=== PATIENT | female | born 1995 | race Caucasian/White ===

== ENCOUNTER → 2018-11-09 | Day surgery (SDC) | payer OTHER ==
[~2018-11-09] MED LIST: DILTIAZEM HCL30 MG PO; ENSKYCE PO; EPINEPHRINE HCL 1:1000 1ML 1 MG/ML AMP ONE; FENTANYL CITRATE/PF 100MCG/2 ML INJ ONE; GLYCOPYRROLATE INJ 1MG/ 5 ML SYR ONE; KETOROLAC TROMETHAMINE 30 MG/ML VIAL ONE; LIDOCAINE 2%/ EPINEPHRINE 20ML MDV ONE; LIDOCAINE HCL 2% LOCAL INJ 5 ML SDV VIAL INJ ONE; MEPERIDINE HCL INJ 25 MG/ML VIAL ONE; MIDAZOLAM HCL 2 MG/2 ML VIAL ONE; NEOSTIGMINE 5 MG/5ML SYR ONE; PROMETHAZINE HCL (IM) 25 MG/ML VIAL ONE; PROPOFOL IV EMULSION 10 MG/ML 20 ML VIAL ONE; ROCURONIUM BROMIDE 10 MG/ML 5ML VIAL ONE; SEVOFLURANE INHAL SOLN 250 ML PEN BTL ONE
--- NOTE | 2018-11-09 04:22 | Pre Op History & Physical ---
DATE OF PROCEDURE: November 09, 2018. CHIEF COMPLAINT: Nasal obstruction and chronic sinusitis. HISTORY OF PRESENT ILLNESS: This 23-year-old female has history of nasal obstruction, worse at night with temporal and occipital pain. She also has nosebleed. The patient has normal sense of smell with no history of injury to the nose. She has postnasal drip. The patient's condition has been treated with multiple antibiotics including Z-Raúl and Levaquin with no improvement of the condition. After 8 weeks of antibiotics, a CT scan of paranasal sinuses showed the patient has chronic sinusitis with maxillary sinus involvement and deviated nasal septum to the right side. REVIEW OF SYSTEMS: System review showed no recent cardiovascular, respiratory, or GI problem. PAST MEDICAL HISTORY: The patient has no significant medical problem. PAST SURGICAL HISTORY: She has previous cholecystectomy. ALLERGIES: SHE IS ALLERGIC TO PENICILLIN. MEDICATIONS: She is on diltiazem and control. SOCIAL HISTORY: She is a nonsmoker and nondrinker. FAMILY HISTORY: Noncontributory. PHYSICAL EXAMINATION: VITAL SIGNS: On examination, the patient's vital signs were within normal limits. She was seen with her mother. HEENT: Ear exam showed normal tympanic membranes bilaterally. Nasal exam showed deviated nasal septum to the right side about 40%. Oropharynx and oral cavity show 2+ tonsils bilaterally with Mallampati level 2. NECK: No lymph node or thyroid palpable. CHEST: Showed good air entry bilaterally. CARDIOVASCULAR: Showed S1, S2. No murmur noted. ASSESSMENT AND PLAN: Ms. Wang has chronic sinusitis and nasal obstruction, which has been resistant to conservative therapy. The suggested treatment is limited endoscopic sinus surgery, septoplasty, and other necessary procedure. Complication of procedure includes, but not limited to bleeding, infection, CSF leak, blindness, double vision, dry eyes, septal perforation, septal hematoma, persistent nasal obstruction, persistent nasal crusting, nasal deformity, recurrence of the sinus problem. Alternatives will be continued observation, continued antibiotic therapy, topical nasal steroid therapy, systemic steroid therapy, and decongestant. The alternative will be continued observation. The patient and her mother have elected to undergo the surgical procedure. MD DONAL Wetzel/MODL /[id number] cc: Emelia Bass MD
--- OUTSIDE RECORDS SUMMARY | 2018-11-09 06:35 | XMS REPORT | Clinical Summary ---
Author Author [facility] Address Unknown Phone Unavailable Care Team Providers Care Quality Compliance Consultant Name Role Phone Fantasma Quiroz MD PCP Unavailable Allergies Comments Active Allergy Reactions Severity Noted Date No Known Drug Allergies 07/27/2015 Medications End Date Status Medication Sig Dispensed Refills Start Date Active diltiazem (CardIZEM) 30 Take 30 mg by 0 MG tablet mouth 4 (four) times a day. Active Problems Problem Noted Date Tachycardia 07/27/2015 Allergic rhinitis 06/23/2011 Acne 11/14/2010 Social History Date Tobacco Use Types Packs/Day Years Used Never Smoker Alcohol Use Drinks/Week oz/Week Comments No Sex Assigned at Date Recorded Not on file Industry Job Start Date Occupation Not on file Not on file Not on file Travel End Travel History Travel Start No recent travel history available. Last Filed Vital Signs Not on file Plan of Treatment Health Maintenance Due Date Last Done Comments CHLAMYDIA SCREENING 2013 INFLUENZA VACCINE 11/04/2018 Results Not on fileafter 11/08/2017 Insurance Type Payer Benefit Subscriber ID Effective Phone Address Plan / Dates Group HMO/PPO [facility] xxxxxxxxx [id number] THCARE resent CHOICE/CHO ICE + (Home) [place] [address] Advance Directives Patient has advance care planning documents on file. For more information, frank joyce contact: Abelardo Barton [address] [place] [address]
[2018-11-09 10:45] VITALS: BP 125/87
--- NOTE | 2018-11-09 15:15 | Operative Report ---
DATE OF PROCEDURE: 11/09/2018 SURGEON: Amaury Ward MD CHIEF COMPLAINT: Chronic sinusitis, nasal obstruction. POSTOPERATIVE DIAGNOSIS: Chronic sinusitis, nasal obstruction. OPERATIVE PROCEDURES: Septoplasty and bilateral anterior ethmoidectomy and maxillary sinus antrostomy bilaterally with resection of tissue of maxillary antrum, bilateral maxillary sinus antrostomy. ANESTHESIA: Dr. Garnett. INDICATIONS: This 23 years old female has postnasal drip and nasal obstruction bilaterally, worse on the right side. Her condition has been treated with topical nasal steroid, decongestant, and antibiotics with no improvement. On examination, she was noted to have a deviated nasal septum to the right side anteriorly about 30% with a spur on the left about 20%. A CT scan of paranasal sinuses shows some ethmoid sinus involvement and some blockage of the maxillary sinus. It was decided that a septoplasty, limited endoscopic sinus surgery and other necessary procedure will be beneficial for her. DESCRIPTION OF PROCEDURE: The patient was taken to the operating room, put under general anesthesia, endotracheally intubated. The nose was injected with 1% Xylocaine with 1:100,000 epinephrine. An epinephrine-soaked pledget was inserted into nose and subsequently removed. The ethmoid sinus was examined on the left side. The appearance of the middle meatal area and the ethmoids sinus area were worse than what the CAT scan showed. Using microdebrider, the anterior ethmoid sinuses were dissected in a systematic fashion. Increased and inflamed tissue was noted in the anterior ethmoid sinus area. Care was taken during dissection to ascertain that the orbit was not entered. Using a curved probe, the natural ostia of the maxillary sinus was entered. This was enlarged anteriorly and posteriorly using a backbiter and Thru-Cut forceps respectively. The right paranasal sinuses were approached. Using the middle turbinate, the right side was medialized. Again, increased lymphoid and increased inflammation was noted in the anterior ethmoid sinus region. The bulla ethmoidalis was entered. Using the microshaver, the anterior ethmoid sinus was dissected in the systematic fashion. Care was taken during dissection to ascertain that the orbit was not entered. Again, the amount of inflammation is worse than what the CT scan shown. Using a curved probe, the natural ostium in the maxillary sinus was entered. This was enlarged anteriorly and posteriorly using a backbiter and Thru-Cut forceps respectively. Septoplasty was performed. A hemitransfixion incision was done on the left side. Mucoperichondrial flap was elevated on the left. Bony cartilaginous junction was encountered and this was . Perpendicular plate of the ethmoid was transected. This was removed along with the vomer. The septal spur cartilaginous portion removed using a Virgil elevator and bony spur using a 4 mm chisel. The quadrangular cartilage after being freed from posterior and inferior constraint was able to swing back into the midline. The hemitransfixion incision was closed using 4-0 chromic suture in interrupted fashion. The septal whipstitch was tied using 4-0 plain gut suture to reapproximate the mucoperichondrial flap and prevent septal hematoma formation. A piece of NasoPore was inserted in the sinus cavities on either side. This was done to prevent synechiae formation and for hemostasis. The patient tolerated the above procedure well with estimated blood loss about 30 mL. She was given 20 mg of Decadron intraoperatively. The patient was able to be transferred to recovery room in stable condition. MD MIGUEL Wetzel/MARY /[id number]
== END | disposition home or self-care (01) ==
LOC: OR 06:33
PROVIDERS: ATTEND Otolaryngology Otolaryngology/Facial Plastic Surgery
DX: J32.0 Chronic maxillary sinusitis (principal); J32.2 Chronic ethmoidal sinusitis; J34.89 Other specified disorders of nose and nasal sinuses; J34.2 Deviated nasal septum; I47.1 Supraventricular tachycardia; Z88.0 Allergy status to penicillin; Z01.810 Encounter for preprocedural cardiovascular examination; Z01.812 Encounter for preprocedural laboratory examination
CPT/HCPCS: 30520; 31254; 31256; 36415; 81025 ×2; 88300; 88305; 93005; J0171; J1885; J2001 ×2; J2175; J2250; J2550; J2704; J3010; J3490; 88304